=== PATIENT | female | born 2000 | race Asian ===

== ENCOUNTER 2025-04-19 19:49 | Emergency (ER) | payer OTHER ==
[~2025-04-19] VITALS: Ht 180.3 cm; Wt 50.0 kg
[2025-04-19 20:23] LABS: COVID AG,FIA SOURCE NASAL SWAB
[2025-04-19 20:24] LABS: PLATELET COUNT (AUTO) 250 K/uL (150-450); RED BLOOD CELL COUNT(AUTO) 4.65 MIL/uL (4.00-5.20); RED CELL DISTRIBUTION WIDTH 14.0 % (11.5-14.5); WHITE BLOOD COUNT (AUTO) 11.2 K/uL (4.5-11.0)
[2025-04-19 20:29] VITALS: BP 127/95; PULSE 111; RESP 18; TEMP 98.005280; O2SAT 100
[2025-04-19 20:33] LABS: CALCIUM, TOTAL 9.0 mg/dL (8.8-10.5); CREATININE 0.68 mg/dL (0.60-1.30); GLOMERULAR FILTR. RATE CALC > 60 mL/min (>60); GLUCOSE,RANDOM 113 mg/dL (70-110); SODIUM SERUM 140 mmol/L (136-145); UREA NITROGEN, BLOOD 10 mg/dL (7-18)
[2025-04-19 20:45] LABS: INFLUENZA TYPE A NEGATIVE FOR TYPE A (NEGATIVE); INFLUENZA TYPE B NEGATIVE FOR TYPE B (NEGATIVE); SARS-COV2 (COVID) ANTIGEN,FIA Negative (Negative)
[2025-04-19] MEDS: LORazepam 2 MG/ML VIAL IVP ONE (20:47)
[2025-04-19] MEDS: POTASSIUM CHLORIDE 20 MEQ ER TABLET PO ONE (21:40)
[2025-04-19] MEDS: SODIUM CHLORIDE 0.9% 1,000 ML IV ONE (21:40)
== END 2025-04-19 23:25 | disposition home or self-care (01) ==
LOC: EMS 19:56
DX: R00.2 Palpitations (principal); F41.9 Anxiety disorder, unspecified; R06.02 Shortness of breath; J45.909 Unspecified asthma, uncomplicated; Z20.822 Contact with and (suspected) exposure to COVID-19
CPT/HCPCS: 99285; 96374; 71045; 96361; 87426; 80048; 84443; 84703; 85025; 85379; 87804; 36415; J2060; J7030